=== PATIENT | male | born 1960 | race African-American/Black ===

== ENCOUNTER 2017-06-12 07:58 | Outpatient (CLI) | payer OTHER ==
[~2017-06-12 07:58] MED LIST: FENOFIBRATE145 MG PO; SYNTHROID50 MCG PO; TENORMIN50 M1 PO; ZOCOR20 MG PO
== END 2017-06-12 08:09 | disposition home or self-care (01) ==
LOC: LAB 07:58
DX: C61 Malignant neoplasm of prostate (principal)

== ENCOUNTER 2017-08-11 10:14 | Outpatient (CLI) | payer OTHER | END 2017-08-11 10:24 | disposition home or self-care (01) | LOC: LAB 10:14 | DX: C61 Malignant neoplasm of prostate (principal) ==

== ENCOUNTER 2017-11-07 14:57 | Outpatient (CLI) | payer OTHER | END 2017-11-07 15:08 | disposition home or self-care (01) | LOC: LAB 14:57 | DX: C61 Malignant neoplasm of prostate (principal) ==

== ENCOUNTER 2017-11-10 07:57 | Outpatient (CLI) | payer OTHER | END 2017-11-10 09:58 | disposition home or self-care (01) | LOC: TOM 07:57 | DX: C61 Malignant neoplasm of prostate (principal) ==

== ENCOUNTER → 2017-11-20 | Outpatient (CLI) | payer OTHER | END | disposition home or self-care (01) | LOC: NUCLEAR 08:00 | DX: C61 Malignant neoplasm of prostate (principal) | CPT/HCPCS: 78306; A9503; 78320 ==

== ENCOUNTER → 2017-11-24 08:26 | Outpatient (CLI) | payer OTHER | END | disposition home or self-care (01) | LOC: LAB 08:26 | DX: C61 Malignant neoplasm of prostate (principal) ==

== ENCOUNTER → 2017-12-08 | Outpatient (CLI) | payer OTHER | END | disposition home or self-care (01) | LOC: LAB 08:23 | DX: E63.8 Other specified nutritional deficiencies (principal); C61 Malignant neoplasm of prostate ==

== ENCOUNTER → 2017-12-21 10:08 | Outpatient (CLI) | payer OTHER | END | disposition home or self-care (01) | LOC: LAB 10:08 | DX: C61 Malignant neoplasm of prostate (principal) ==

== ENCOUNTER → 2018-01-04 09:05 | Outpatient (CLI) | payer OTHER | END | disposition home or self-care (01) | LOC: LAB 09:05 | DX: K62.5 Hemorrhage of anus and rectum (principal); E78.4 Other hyperlipidemia; E03.8 Other specified hypothyroidism; R10.84 Generalized abdominal pain ==

== ENCOUNTER 2018-02-26 10:02 | Outpatient (CLI) | payer OTHER | END 2018-02-26 10:03 | disposition home or self-care (01) | LOC: LAB 10:02 | DX: C61 Malignant neoplasm of prostate (principal) ==

== ENCOUNTER 2018-04-16 09:28 | Outpatient (CLI) | payer OTHER | END 2018-04-16 09:38 | disposition home or self-care (01) | LOC: LAB 09:28 | DX: C61 Malignant neoplasm of prostate (principal) ==

== ENCOUNTER 2018-09-11 08:02 | Outpatient (CLI) | payer OTHER | END 2018-09-11 16:41 | disposition home or self-care (01) | LOC: LAB 08:02 | DX: C61 Malignant neoplasm of prostate (principal) ==

== ENCOUNTER 2019-05-03 08:52 | Outpatient (CLI) | payer OTHER | END 2019-05-03 09:01 | disposition home or self-care (01) | LOC: LAB 08:52 | DX: C61 Malignant neoplasm of prostate (principal) ==

== ENCOUNTER 2019-11-05 08:28 | Outpatient (CLI) | payer OTHER | END 2019-11-05 09:26 | disposition home or self-care (01) | LOC: LAB 08:28 | PROVIDERS: ATTEND Urology | DX: C61 Malignant neoplasm of prostate (principal) ==

== ENCOUNTER → 2020-01-29 09:34 | Outpatient (CLI) | payer OTHER ==
[~2020-01-29 09:34] MED LIST changes: +TRICOR48 MG PO
== END | disposition home or self-care (01) ==
LOC: LAB 09:34
PROVIDERS: ATTEND Urology
DX: C61 Malignant neoplasm of prostate (principal); I11.9 Hypertensive heart disease without heart failure

== ENCOUNTER 2020-02-06 15:53 | Outpatient (CLI) | payer OTHER ==
[~2020-02-06 15:53] MED LIST changes: -TRICOR48 MG PO
== END 2020-02-06 15:58 | disposition home or self-care (01) ==
LOC: LAB 15:53
PROVIDERS: ATTEND Internal Medicine Geriatric Medicine
DX: D69.49 Other primary thrombocytopenia (principal); D68.8 Other specified coagulation defects

== ENCOUNTER 2020-02-26 06:00 | Inpatient (IN) | payer OTHER ==
[~2020-02-26 06:00] MED LIST changes: +TRICOR48 MG PO
== END 2020-02-27 10:00 | disposition home or self-care (01) | DRG 710 ==
LOC: CIR.AMB 06:00 → O/R 12:24
PROVIDERS: ADMIT Urology; ATTEND Urology
PROC: 0VUS0JZ Supplement Penis with Synthetic Substitute, Open Approach (ICD-10-PCS; principal; 2020-02-26 07:00)
DX: N52.8 Other male erectile dysfunction (principal); I10 Essential (primary) hypertension

== ENCOUNTER 2020-03-06 10:03 | Outpatient (CLI) | payer OTHER | END 2020-03-06 10:09 | disposition home or self-care (01) | LOC: LAB 10:03 | PROVIDERS: ATTEND Urology | DX: N30.00 Acute cystitis without hematuria (principal); D62 Acute posthemorrhagic anemia; F52.8 Other sexual dysfunction not due to a substance or known physiological condition ==

== ENCOUNTER → 2020-03-20 07:45 | Outpatient (CLI) | payer OTHER | END | disposition home or self-care (01) | LOC: LAB 07:45 | PROVIDERS: ATTEND Urology | DX: C61 Malignant neoplasm of prostate (principal) ==

== ENCOUNTER → 2020-10-19 06:39 | Outpatient (CLI) | payer OTHER | END | disposition home or self-care (01) | LOC: LAB 06:39 | PROVIDERS: ATTEND General Practice | DX: E78.00 Pure hypercholesterolemia, unspecified (principal); E03.8 Other specified hypothyroidism; B97.89 Other viral agents as the cause of diseases classified elsewhere; N40.0 Benign prostatic hyperplasia without lower urinary tract symptoms; K92.1 Melena; E11.9 Type 2 diabetes mellitus without complications ==

== ENCOUNTER 2020-10-30 07:05 | Outpatient (CLI) | payer OTHER | END 2020-10-30 09:04 | disposition home or self-care (01) | LOC: LAB 07:05 | PROVIDERS: ATTEND General Practice | DX: E03.8 Other specified hypothyroidism (principal); B97.89 Other viral agents as the cause of diseases classified elsewhere; K92.1 Melena; E11.9 Type 2 diabetes mellitus without complications; E78.00 Pure hypercholesterolemia, unspecified; N40.0 Benign prostatic hyperplasia without lower urinary tract symptoms ==

== ENCOUNTER 2020-11-06 06:32 | Outpatient (CLI) | payer OTHER | END 2020-11-06 06:40 | disposition home or self-care (01) | LOC: LAB 06:32 | PROVIDERS: ATTEND Urology | DX: C61 Malignant neoplasm of prostate (principal) ==

== ENCOUNTER 2021-05-11 08:41 | Outpatient (CLI) | payer OTHER | END 2021-05-11 08:42 | disposition home or self-care (01) | LOC: LAB 08:41 | PROVIDERS: ATTEND Urology | DX: C61 Malignant neoplasm of prostate (principal) ==

== ENCOUNTER → 2021-10-11 10:56 | Outpatient (CLI) | payer OTHER | END | disposition home or self-care (01) | LOC: LAB 10:56 | PROVIDERS: ATTEND Urology | DX: C61 Malignant neoplasm of prostate (principal) ==

== ENCOUNTER 2021-12-22 06:35 | Outpatient (CLI) | payer OTHER | END 2021-12-22 07:46 | disposition home or self-care (01) | LOC: LAB 06:35 | PROVIDERS: ATTEND Urology | DX: I11.9 Hypertensive heart disease without heart failure (principal); R31.0 Gross hematuria ==

== ENCOUNTER 2022-01-05 07:53 | Outpatient (CLI) | payer OTHER | END 2022-01-05 08:01 | disposition home or self-care (01) | LOC: TOM 07:53 | PROVIDERS: ATTEND Urology | DX: R31.0 Gross hematuria (principal); C61 Malignant neoplasm of prostate ==

== ENCOUNTER 2022-01-20 13:46 | Outpatient (CLI) | payer OTHER | END 2022-01-20 13:57 | disposition home or self-care (01) | LOC: RAD 13:46 | PROVIDERS: ATTEND General Practice | DX: I10 Essential (primary) hypertension (principal) ==

== ENCOUNTER 2022-09-30 06:30 | Outpatient (CLI) | payer OTHER | END 2022-09-30 06:37 | disposition home or self-care (01) | LOC: LAB 06:30 | PROVIDERS: ATTEND Urology | DX: C61 Malignant neoplasm of prostate (principal) ==

== ENCOUNTER 2023-01-03 07:35 | Outpatient (CLI) | payer OTHER | END 2023-01-03 07:36 | disposition home or self-care (01) | LOC: LAB 07:35 | PROVIDERS: ATTEND Urology | DX: C61 Malignant neoplasm of prostate (principal); R31.0 Gross hematuria ==

== ENCOUNTER 2023-04-26 11:10 | Outpatient (CLI) | payer OTHER ==
[2023-04-26 11:51] LABS: URINE APPEARANCE Clear; URINE BILIRRUBIN Negative (NEGATIVE); URINE BLOOD Negative; URINE COLOR Yellow; URINE GLUCOSE Negative (NEGATIVE); URINE LEUKOCYTE Negative; URINE NITRATE Negative; URINE PROTEIN Negative (NEGATIVE); URINE UROBILINOGEN 0.2 E.U./dl
[2023-04-26 12:08] LABS: URINE BACTERIA 2.5 uL (0.0-1933); URINE EPITHELIAL CELLS 0.3 uL (0.0-38.8); URINE RBC 1.4 uL (0.0-20.8); URINE WBC 1.2 uL (0.0-23.2)
== END 2023-04-26 11:11 | disposition home or self-care (01) ==
LOC: LAB 11:10
PROVIDERS: ATTEND Urology
DX: C61 Malignant neoplasm of prostate (principal)

== ENCOUNTER 2023-12-13 15:00 | Emergency (ER) | payer OTHER ==
[~2023-12-13] VITALS: Ht 165.1 cm; Wt 83.0 kg
[2023-12-13] MEDS ORDERED: LOSARTAN POTASS50 MG PO (16:20)
[2023-12-13 20:02] LABS: HEMATOCRIT 44.5 % (39.0-48.0); HEMOGLOBIN 15.3 g/dL (13-16.00); MEAN CORPUSCULAR HEMOGLOBIN 29.6 pg (27.00-32.0); MEAN CORPUSCULAR HGB CONC 34.4 g/dl (32.0-36.0); PLATELET COUNT 152 K/uL (150-450); RED BLOOD COUNT 5.17 M/uL (4.00-6.00); RED CELL DISTRIBUTION WIDTH 13.8 % (11.5-14.5)
[2023-12-13 20:24] LABS: CALCIUM 8.9 mg/dL (8.5-10.1); CREATININE SERUM 0.92 mg/dL (0.70-1.30); GFR 83.64; POTASSIUM 3.86 mEq/L (3.5-5.1)
== END 2023-12-13 21:18 | disposition home or self-care (01) ==
LOC: ER 15:01
DX: R00.2 Palpitations (principal)

== ENCOUNTER → 2024-07-08 | Outpatient (CLI) | payer OTHER ==
[~2024-07-08] MED LIST changes: +LOSARTAN POTASS50 MG PO
== END | disposition home or self-care (01) ==
LOC: LAB 11:16
PROVIDERS: ATTEND Urology
DX: C61 Malignant neoplasm of prostate (principal)

== ENCOUNTER 2024-12-15 20:05 | Emergency (ER) | payer OTHER ==
[~2024-12-15] VITALS: Ht 165.1 cm; Wt 83.9 kg
[2024-12-15] MEDS ORDERED: FENOFIBRATE150 MG PO (20:23)
[2024-12-15] MEDS ORDERED: ROSUVASTATIN CA40 MG PO (20:24)
[2024-12-15] MEDS ORDERED: AVAPRO300 MG PO (20:24)
[2024-12-15] MEDS ORDERED: RINGERS SOLUTION,LACTATED 500 ML IV STA (21:21)
[2024-12-15 21:58] LABS: URINE APPEARANCE Turbid; URINE BILIRRUBIN Small (NEGATIVE); URINE BLOOD Large; URINE COLOR Red; URINE GLUCOSE Negative (NEGATIVE); URINE KETONE Negative (NEGATIVE); URINE LEUKOCYTE Large; URINE NITRATE Positive; URINE UROBILINOGEN 1.0 E.U./dl
[2024-12-15 21:59] LABS: BASO % 0.2 % (0.1-1.2); EOS # 0.17 (0.04-0.54); EOS % 1.7 % (0.7-7.0); LYMPH # 0.94 (1.18-3.74); LYMPH % 9.2 % (19.3-53.1); MEAN PLATELET VOLUME 10.50 fl (9.4-12.4); MONO # 1.43 (0.24-0.82); NEUT # 7.64 (1.56-6.13); NEUT % 74.6 % (34.0-71.1); RED CELL DISTRIBUTION WIDTH 13.0 % (11.6-14.4)
[2024-12-15 22:01] LABS: MONO % 14.0 % (4.7-12.5)
[2024-12-15 22:03] LABS: URINE BACTERIA > 9821.5 uL (0.0-1933); URINE CAST 0.22 uL (0.0-1.40); URINE EPITHELIAL CELLS 1.5 uL (0.0-38.8); URINE PROTEIN 100 (NEGATIVE); URINE RBC > 10558.9 uL (0.0-20.8); URINE WBC 2425.5 uL (0.0-23.2)
[2024-12-15 22:18] LABS: INR 0.99
[2024-12-15 22:24] LABS: ALT/SGPT 25.0 U/L (12-78); AST/SGOT 16.0 U/L (15-37); BILIRUBIN TOTAL 0.82 mg/dL (0.3-1.2); BUN CREA RATIO 13.0 (7.0-25.0); CREATININE SERUM 1.56 mg/dL (0.70-1.30); GFR 45.32; GLOBULINA 4.3 G/DL (2.4-3.5); GLUCOSE FASTING 110.0 mg/dL (65-100); OSMOLALITY SERUM 283.0 MOSM/KG (275-295)
[2024-12-15] MEDS ORDERED: ONDANSETRON HCL 2 MG/ML VIAL IV STA (22:40)
== END 2024-12-15 23:39 | disposition home or self-care (01) ==
LOC: ER 20:20
DX: N30.81 Other cystitis with hematuria (principal); B96.1 Klebsiella pneumoniae [K. pneumoniae] as the cause of diseases classified elsewhere; N13.30 Unspecified hydronephrosis; N28.1 Cyst of kidney, acquired

== ENCOUNTER → 2025-04-03 09:04 | Outpatient (CLI) | payer OTHER ==
[~2025-04-03 09:04] MED LIST changes: +AVAPRO300 MG PO; +FENOFIBRATE150 MG PO; +ROSUVASTATIN CA40 MG PO
[2025-04-03 09:34] LABS: URINE APPEARANCE Clear; URINE BILIRRUBIN Negative (NEGATIVE); URINE BLOOD Negative; URINE COLOR Yellow; URINE GLUCOSE Negative (NEGATIVE); URINE KETONE Negative (NEGATIVE); URINE LEUKOCYTE Negative; URINE NITRATE Negative; URINE PROTEIN Negative (NEGATIVE); URINE UROBILINOGEN 0.2 E.U./dl
[2025-04-03 09:44] LABS: URINE BACTERIA 0 uL (0.0-1933); URINE CAST 0.14 uL (0.0-1.40); URINE EPITHELIAL CELLS 0.0 uL (0.0-38.8); URINE RBC 0.7 uL (0.0-20.8); URINE WBC 0 uL (0.0-23.2)
== END | disposition home or self-care (01) ==
LOC: LAB 09:04
PROVIDERS: ATTEND Urology
DX: C61 Malignant neoplasm of prostate (principal)